=== PATIENT | male | born 1950 | race Caucasian/White ===

== ENCOUNTER 2018-07-29 22:12 | Inpatient (IN) ==
[2018-07-29 22:57] LABS: BASO# 0.02 X1000 (0.0-0.2); BASO% 0.2 % (0.0-0.8); EOS# 0.06 X1000 (0.0-0.7); EOS% 0.7 % (0.0-10.0); HEMATOCRIT 49.3 % (42.0-52.0); HEMOGLOBIN 17.2 g/dL (14.0-18.0); LYMPH# 2.21 X1000 (1.2-3.4); LYMPH% 25.6 % (20.5-51.1); MCH 31.6 PG (27-31); MCHC 34.9 g/dL (33-37); MCV 90.5 FL (81-99); MONO# 1.23 X1000 (0.11-0.59); MONO% 14.3 % (1.7-9.3); MPV 10.9 FL (7.4-10.4); NEUT# 5.11 X1000 (1.4-6.5); NEUT% 59.2 % (42.2-75.2); PLT 271 X1000 (130-400); RBC 5.45 XMIL (4.7-6.1); RDW 13.2 % (11.5-14.5); WBC 8.63 X1000 (4.8-10.8)
[2018-07-29] MEDS ORDERED: NS 1,000 ML IV ONE (22:57)
[2018-07-29] MEDS ORDERED: ZOFRAN IV ONE (22:57)
[2018-07-29] MEDS ORDERED: MORPHINE IV ONE (22:57)
[2018-07-29 23:17] LABS: AGAP 13; ALB/GLOB RATIO 1.3; ALKALINE PHOSPHATASE 63 U/L (32-122); BUN 26 mg/dL (8-22); CALCIUM 9.5 mg/dL (8.8-10.2); CHLORIDE 99 mmol/L (98-107); COSMO 280; ESTIMATED GFR > 60; GLUCOSE 162 mg/dL (70-104); GOT 18 U/L (10-34); GPT 19 U/L (10-44); LIPASE 132 U/L (13-60); POTASSIUM 3.5 mmol/L (3.5-5.1); SODIUM 136 mmol/L (136-145); TCO2 24 mmol/L (25-35); TOTAL BILIRUBIN 1.67 mg/dL (0.20-1.00)
[2018-07-30] MEDS ORDERED: XYLOCAINE 2% JELLY UROJECT TOP ONE (00:39)
--- NOTE | 2018-07-30 01:38 | PROVIDER DOCUMENTATION ---
This chart was entered by Monroe Hunter Scribe, acting as scribe for Siomara Campbell MD. HPI-Abdominal Pain/GI Problem - General Chief Complaint: Abdominal Pain Stated Complaint: STOMACH PAIN Time Seen by Provider: 07/29/18 22:54 Source: patient - History of Present Illness-ABD Nature of Presenting Problems: Pt is a 67 y/o M presents to the ED with abdominal pain, distention, N/V/D for 3 days. He had no diarrhea today but a small BM but continues to have N&V. No fever, no blood in emesis or stool, has not taken anything for his symptoms. Abdominal Pain Onset Location: reports: generalized abdomen Pain Radiation: reports: no radiation Quality of Pain: reports: aching Severity in ED: reports: moderate, severe Onset/Duration: reports: 3 days ago Timing: reports: still present Activities at Onset: reports: none Exposure to sick contacts?: No Modifying Factors: improves with: nothing Associated Symptoms: reports: diarrhea, nausea, vomiting. denies: back/neck pain, constipation, diaphoresis, fever/chills, trouble walking Review of Systems - Adult - REVIEW OF SYSTEMS - ADULT Constitutional: denies: chills, fever Eyes: reports: no symptoms reported Ears, Nose, Mouth & Throat: reports: no symptoms reported Cardiovascular: reports: no symptoms reported Respiratory: denies: cough, shortness of breath Gastrointestinal: reports: abdominal pain, diarrhea, nausea, vomiting. denies: constipation Genitourinary: denies: dysuria, discharge Musculoskeletal: denies: back pain, neck pain Integumentary: reports: no symptoms reported Neurological: reports: no symptoms reported Psychiatric: reports: no symptoms reported Endocrine: reports: no symptoms reported Hematologic/Lymphatic: reports: no symptoms reported Allergic/Immunologic: reports: no symptoms reported All Other Systems: Reviewed and Negative Past History - Adult - PAST MEDICAL HISTORY-ADULT Review of Records: reports: Old Records Reviewed, Nursing Assessment Review, Medications Reviewed - SOCIAL HISTORY Smoking: non-smoker Living Situation: family Physical Exam-General - PHYSICAL EXAM-ADULT Initial Vital Signs Reviewed: Yes - CONSTITUTIONAL General Appearance: alert, no apparent distress - EYES Eyes: PERRL/EOMI, pink conjunctivae - HEAD, EARS, NOSE, MOUTH & THROAT HENMT: moist mucous membranes, normal ENT inspection, pharynx normal - NECK Neck: non-tender, full range of motion, supple, normal inspection - RESPIRATORY Respiratory: lungs clear, normal breath sounds, no pleuratic chest pain, no respiratory distress, no accessory muscle use - CARDIOVASCULAR Cardiovascular: normal peripheral pulses, regular rate, rhythm - GASTROINTESTINAL (ABDOMEN) Abdominal Exam: distended, guarding, rigid, tenderness (diffuse moderate) - MUSCULOSKELETAL Back Exam: normal inspection, no CVA tenderness, no vertebral tenderness Extremity: normal range of motion, non-tender, normal inspection - SKIN Integumentary: normal turgor, warm/dry, jaundice (slight) - NEUROLOGIC Neurologic: grossly normal, no motor/sensory deficits - PSYCHIATRIC Psych/Mental Status: normal mood/affect, normal thought content, normal thought process, oriented x 3 Progress - PLAN OF CARE/RESULTS Progress/Plan/Lab Results: Vital Signs - 8 hr 07/29/18 22:27 Temperature 97.5 F L Pulse Rate 81 Respiratory Rate 18 Blood Pressure 124/89 O2 Sat by Pulse Oximetry 96 Orders Category Date Time Status CBC WITH ELECTRONIC DIFF [HEME] Stat Lab 07/29/18 22:40 Results COMPREHENSIVE METABOLIC PANEL [CHEM] Stat Lab 07/29/18 22:40 Received LIPASE [CHEM] Stat Lab 07/29/18 22:40 Received TROPONIN T Stat Lab 07/29/18 22:40 Received UA Reflex [URINALYSIS W/POSS RFLX CULT] [URINALYSIS] Lab 07/29/18 22:40 Ordered Stat EKG [EKG] Stat Ther 07/29/18 22:27 Ordered abdominal pain with distention nausea and vomiting will further evaluate for causes including but not limited to gastroenteritis, colitis, diverticulitis, u ti, pyelo, obstruction Result Diagrams: 07/29/18 22:40 07/29/18 22:40 - REASSESSMENT Reassessment #1 Status: improving (feeling better, symptoms likely due to SBO. NG placed and will admit. Discussed case wtih Dr. Nicholas, hospitalist who will see and admit pt.) - EKG 1 Time of EKG reading by physician:: 22:55 EKG Read and Signed by:: Siomara Campbell EKG Interpretation (*Must complete 3 of following elements*): Abnormal Rate: 77 Rhythm: NSR Comments: Borderline ECG - CT/MRI 1 CT Study: Abdomen Impression: Abnormal (1. muliple fluid filled loops of dialeted small bowel measuring up to 4.3cm. No focal transition point identifed. The descending colon and distal transverse colon decompressed. A componet of obstruction present. Mild sigmoid colon diverticulitis 3. 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), See EMR Report - CONSULTS/PCP/HOSPITALIST Notification #1 *Consult/PCP/Hospitalist*: Dr Ayala- General surgery Time Discussed: 00:34 Reason/Comments: reivew of HPI Consult Disposition: No: other (will follow) #2 Consult: Hospitalist- Dr Nicholas Time Discussed: 01:11 Reason/Comments: ADMISSION Consult Disposition: Admit (accepts) Departure - Departure Date of Disposition Decision: 07/30/18 Time of Disposition Decision: 01:38 DIAGNOSIS: Small bowel obstruction Disposition: ADMITTED INPATIENT 09 Certified Medical Emergency: Emergent Condition: Good Referrals and Follow-Ups: None,PCP [Primary Care Provider] - - Critical Care Note This patient required my direct & personal management of CC.: No Attestation - Physician/ MONIKA Attestation Patient care was provided by Advanced Practice Provider:: No The physician spent face to face time with patient:: Yes Advanced Practice Provider documentation review:: Supervising physician onsite and consulted in the evaluation and care of this patient. The physician did have a face to face encounter with the patient. This chart was documented by the indicated scribe, (Monroe Hunter Scribe) and accurately reflects the services I performed and decisions made by me, Siomara Campbell MD, as attested by the provider's signature.
--- NOTE | 2018-07-30 02:58 | HISTORY AND PHYSICAL ---
ADDENDUM: Mr. Chino Zimmer has a history of COPD and hypertension, and reports that over the last weekend, 5-6 fays ago he developed protracted nausea, vomiting and diarrhea. Denies any contact with anybody who is sick. He said that he had both diarrhea and vomiting no less than 10 episodes. On Friday 2 days later, he says his symptoms abated. He did not eat hardly anything during that day. On Friday he tried to have a bowl of cereal. Over the course of Friday and Friday he had no bowel movements. Then on Friday i.e. yesterday he tried to advance his diet to solids and said he got intense abdominal pain and was brought into the ER. Last bowel movement was a small 1 yesterday Friday. When he came in his labs were essentially unremarkable other than a mildly elevated BUN and mildly low potassium, which will be corrected. His CT scan showed small bowel obstruction with gastric distention. An NG tube was then placed and he was subsequently decompressed. His exam is essentially only notable for distended and tympanic abdomen with mild tenderness in the epigastrium. No peritoneal signs. Bowel sounds are significantly hypoactive. So our plan for him now will be abdominal decompression, IV fluids and electrolyte replacement, and treat symptomatically otherwise. If the patient does not improve after checking serial x-rays over the next 48 hours then Surgery will need to be invited. Alternatively the patient is slowly improving, and we are not sure if he is truly obstructed. We can elect to have a small bowel follow-through to confirm true obstruction versus ileus, which is very likely in this patient's case. cc: Megan Nicholas MD
[2018-07-30] MEDS: NS + KCL 20 MEQ 1,000 ML IV SCH ×2 (02:59→11:55)
[2018-07-30] MEDS ORDERED: ZOSYN 3.375 GM in NS 50 ML IV SCH (05:00)
[2018-07-30] MEDS ORDERED: ZOFRAN IV PRN (05:37)
[2018-07-30] MEDS ORDERED: OFIRMEV 1000 MG/ISOTONIC SOLN 1,000 MG/100 ML BOTTLE IV PRN (05:56)
[2018-07-30] MEDS: LEVAQUIN 750 MG/D5W 750 MG/150 ML IVPB IV SCH (06:16)
[2018-07-30 06:34] LABS: URINE SOURCE CLEAN CATCH
[2018-07-30 06:57] LABS: BILIRUBIN URINE NEGATIVE (NEGATIVE); BLOOD URINE NEGATIVE (NEGATIVE); COLOR YELLOW; GLUCOSE URINE NEGATIVE (NEGATIVE); KETONE URINE TRACE mg/dL (NEGATIVE); LEUKOCYTES URINE NEGATIVE (NEGATIVE); NITRITE URINE NEGATIVE (NEGATIVE); PH URINE 6.5; PROTEIN URINE 30 mg/dL (NEGATIVE); SP GRAVITY URINE > 1.050; TURBIDITY URINE CLEAR (CLEAR); UROBILINOGEN URINE NORMAL (NORMAL)
[2018-07-30 06:59] LABS: UR EPITHELIAL CELLS <10 /HPF (<10); URINE BACTERIA NEGATIVE /HPF; URINE RBC <10 /HPF (<10); URINE WBC <10 /HPF (<10)
--- NOTE | 2018-07-30 07:12 | EKG Report ---
Test Performed on : 07/29/2018 10:55:00 PM Test Reason : abdominal pain Blood Pressure : / mmHG Vent. Rate : 077 BPM Atrial Rate : 077 BPM P-R Int : 140 ms QRS Dur : 086 ms QT Int : 396 ms P-R-T Axes : 068 064 049 degrees QTc Int : 448 ms Normal sinus rhythm. Possible Left atrial enlargement Borderline ECG No previous ECGs available Unconfirmed Result
--- NOTE | 2018-07-30 07:30 | HISTORY AND PHYSICAL ---
PRIMARY CARE PHYSICIAN: The patient does not have a primary care provider. CHIEF COMPLAINT: Abdominal pain. HISTORY OF PRESENT ILLNESS: Mr. Zimmer is a pleasant 67-year-old male who states that for the last 3 years that he has had persistent abdominal pain and bloating. He states that previously he was being evaluated by Dr. Live with Gastroenterology and did have a colonoscopy performed at [facility] although the patient states that unfortunately that he did not have a pleasant experience time with Dr. Live ordered the care he received at [facility]. He states that he has not been back since that time due to his experience and has been dealing with his abdominal pain and bloating ever since. Also the patient did request that if Gastroenterology was involved that Dr. Live not be consulted for him if possible. The patient states that on Friday his abdominal pain did become much worse. He did have nausea, vomiting and diarrhea several episodes of each. He states that his did have similar symptoms as well. He thinks that she may have given the "stomach bug" to him though he states that she got better, her symptoms subsided though his symptoms have continued. He did report that he has felt better over the past day or 2. His nausea, vomiting and diarrhea had almost completely gone away. Given this he did try to eat something given that he reports that he had had not eaten anything almost for 3 days because he was feeling not well. He states that he did try to eat a half of a bowl of cereal and then did eat some roast beef and vegetables that his brought home to him. He states that right after he ate this he began to have severe abdominal pain. He reports it as like tight burning type pressure. It was so severe that he did present to the ER for further treatment and evaluation. He also did have nausea with this as well. Though he denied any hematochezia emesis or coffee- ground appearing emesis. He denied any hematochezia. He has reported some melena. He denies any jncw-zxx-uakcnet use of medications such as Pepto-Bismol. He has reported that he has had dizziness, occasional headache. He has had fever, body aches and chills. He denies any chest pain, or cough though states that he does frequently have shortness of breath. The patient reports that he has been told he has COPD though he does not take any medications for this. He has quit smoking approximately 5 years ago. The patient states his abdomen has persistently been bloated for 3 years and he thinks that this is contributing to some of his respiratory symptoms. He denies any dysuria or urinary frequency. He denies any pain, numbness, tingling or swelling in extremities. The patient did state that he does not like to go to doctors and this is why he does not have a primary care physician. Upon evaluation in the ER, the patient was noted to be in pain upon arrival. His abdomen is distended. He appears to be maybe a little dehydrated as well. Given his distended abdomen and reported symptoms, a CT abdomen and pelvis with IV contrast was performed which did show multiple fluid-filled loops of dilated small bowel measuring up to 4.3 cm. There was no focal transition point identified. The descending colon and distal transverse colon are decompressed. A component of obstruction is likely present. There was also mild sigmoid colon diverticulitis noted. Also mentioned were findings of a cardiac lipoma within the right atrium measuring 2.9 x 1.4 cm. Given these findings, the ER physician, [*]did consult Dr. Vasquez with Surgery and make him aware of the patient's CT findings. The patient will be placed for inpatient admission. REVIEW OF SYSTEMS: A 14 point review of systems was conducted with the patient. All were negative except for pertinent positives mentioned in the above HPI. PAST MEDICAL HISTORY: 1. History of COPD but the patient states that he is not taking any medications for this. 2. History of hypertension. The patient states he is not taking medications for this either. PAST SURGICAL HISTORY: 1. Umbilical hernia repair. 2. Bilateral inguinal hernia repairs. SOCIAL HISTORY: The patient is a former smoker. He quit smoking 5 years ago. The patient reports that he previously did have alcohol use as well though denies any at present. He has no known illicit drug use. 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 He is . FAMILY HISTORY: Positive for his mother having a history of diabetes. His father did pass away secondary to a MVC when he was only 5 years old. Due to this he does not know any medical history that his father may have had. ALLERGIES: Patient has reported anaphylactic allergy to penicillin. HOME MEDICATIONS: The patient denies any home medication use though he does state he takes an hwgr-xbl-lrzvlnp baby aspirin daily as well as vitamin B12. DIAGNOSTIC DATA/LABORATORY RESULTS: White blood cell count is 8630, hemoglobin 17.2, hematocrit 49.3, platelet count is 271,000. Sodium 136, potassium 3.5, chloride 99, serum bicarb 24, BUN 26, creatinine is 1. Glucose 162. Calcium 9.5, total bilirubin is 1.67, AST 18, ALT 19, alkaline phosphatase is 63. Troponin is less than 0.01. Lipase is 132. Chest x-ray: There does not appear to be any acute abnormality though we are awaiting official radiology over-read. CT of the abdomen and pelvis with IV contrast showed multiple fluid-filled loops of dilated small bowel measuring up to 4.3 cm. There is no focal transition point identified. The descending colon and distal transverse colon are decompressed. Component of obstruction is likely present. 2) Mild sigmoid colon diverticulitis. 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 PHYSICAL EXAMINATION: VITAL SIGNS: Temperature 97.5 degrees, heart rate 81, respirations 18, blood pressure 124/89, oxygen saturation is 96% room air. GENERAL: Mr. Zimmer is a very pleasant, 67-year-old, male who was resting in the ER stretcher. He is in no acute distress. He was awake, alert, and able to answer questions appropriately. HEENT: Head is atraumatic, normocephalic. Pupils are equal, round, reactive to light, were 3 mm bilaterally and brisk. Oral mucosa is slightly dry. Oropharynx is clear. NECK: Supple. Trachea midline. CARDIOVASCULAR: Patient has S1, S2 present. No murmurs, gallops, rubs appreciated with a regular rate and rhythm. PULMONARY: Patient has symmetrical chest expansion bilaterally. Lung sounds are clear to auscultation in bilateral full bravo. ABDOMEN: Soft, though is distended. The patient does have generalized tenderness noted upon palpation. Bowel sounds were present in all 4 quadrants, were hypoactive. EXTREMITIES: No cyanosis, clubbing, or edema noted. Pulse, motor, and sensory are intact in all extremities. Radial pulses and pedal pulses are 2+ bilaterally. INTEGUMENTARY: The patient's skin is pink, warm, and dry. NEUROLOGICAL: Patient is alert and oriented to person, place, time, and situation. He is able to move all extremities. There does not appear to be any focal neurological deficits noted. ASSESSMENT AND PLAN: 1. Small-bowel obstruction. For this, the patient will be placed NPO. He has already had a NG tube placed in the ER. The patient's abdomen though is still somewhat distended. He is still complaining of pain as well. We will provide p.r.n. morphine for pain as well as Zofran for nausea. We will provide IV fluid hydration. We have placed a consult with Dr. Vasquez and will await his evaluation and further recommendations for management. 2. Sigmoid colon diverticulitis. Though the patient does not have any leukocytosis, he has reported that he has had fever, body aches and chills. He did recently have a few days of nausea, vomiting and diarrhea. We have obtained blood cultures. We have also ordered some stool studies as well. We will place him with antibiotic coverage of Levaquin and Flagyl given that he does have a penicillin allergy. We will continue to follow. 3. Cardiac lipoma. On the patient's CT it was noted that he had a cardiac lipoma within the right atrium measuring 2.9 x 1.4 cm. Previously the patient did have a myocardial perfusion scan as well as an echocardiogram performed in September 2015 and there is no mention of any lipoma being present. For further evaluation, we will obtain a echocardiogram. We await those results and continue to follow. I would like to note that the patient does state that he has frequent shortness of breath. 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 He does have a history of COPD for which he is not taking any medications for. This could be related to that though the patient also has had persistent abdominal pain and distention for 3 years. This could be contributing to that as well though given the results of his echocardiogram as well as some of his symptoms do not improve with improvement of his abdominal distention, he may need further evaluation with chest CT and/or even possible MRI depending on echocardiogram results. 4. History of COPD. We have placed p.r.n. orders for DuoNeb treatments. 5. History of hypertension though the patient does not take any home medications for this. At this time the patient's blood pressure is within normal limits. Last reading was 124/89. We will continue to follow and implemented antihypertensive as necessary. 6. Deep vein thrombosis prophylaxis. We provided with SCDs. We will hold any anticoagulants until he is evaluated by Surgery. 7. Prophylaxis is being provided with Protonix 40 mg intravenous every 24 hours. The patient has been placed on the surgical floor with telemetry. He will have vital signs every 8 hours. We will do strict intake and output. We will repeat a CBC and BMP and magnesium in the morning. We are awaiting results of a urinalysis as well as the stool studies. Further orders and recommendations pending hospital course, diagnostic studies, and physician evaluation. Dictated by BEATRIZ Perez for Megan Nicholas MD cc: Megan Nicholas MD
--- NOTE | 2018-07-30 07:33 | Diag Imaging Result Doc PS360 ---
EXAM: CHEST-1 VIEW 07/30/2018 HISTORY: ng placement TECHNIQUE: AP portable at 0137 for NG tube placement COMMENT: The NG tube tip is in the stomach. IMPRESSION: NG tube in the stomach. Electronically signed by Eduard العلي 07/30/2018 7:31 AM
--- NOTE | 2018-07-30 07:42 | Diag Imaging Result Doc PS360 ---
EXAM: CT ABD/PELVIS W/IV CONT ONLY INDICATION: colitis TECHNIQUE: This exam was performed using automated exposure control, adjustment of mA or kV according to patient size, and/or use of iterative reconstruction technique. COMPARISON: None. FINDINGS: A 2.9 cm right atrial lipoma is noted incidentally. There is a small fat-containing Bochdalek hernia at the right lung base. The liver, gallbladder, spleen, pancreas, and adrenal glands are unremarkable. There are several small simple appearing cysts involving both kidneys. The kidneys are unremarkable, otherwise. The urinary bladder is unremarkable. The prostate is somewhat enlarged and there are bulky prostatic calcifications. There are multiple distended loops of bowel containing air-fluid levels consistent with bowel obstruction. There is a smooth transition point at the distal ileum that is seen after just to the left of midline on image 93 of series 3. There are several sigmoid colonic diverticula and there is mild focal inflammation emanating from one of the diverticula at the mid sigmoid colon that can be seen on image 116 of series 3 indicative of mild diverticulitis. The remainder of the GI tract is essentially unremarkable. There is multilevel lumbar spondylosis. There are degenerative changes at the hips. IMPRESSION: 1.Distended loops of small bowel indicating obstruction with a smooth transition point at the ileum. 2.Mild sigmoid colonic diverticulitis. 3.Other incidental/nonacute findings detailed above. Electronically signed by Juan Torres 07/30/2018 7:40 AM
[2018-07-30 07:48] LABS: BASO# 0.03 X1000 (0.0-0.2); BASO% 0.4 % (0.0-0.8); EOS# 0.09 X1000 (0.0-0.7); EOS% 1.2 % (0.0-10.0); HEMATOCRIT 45.7 % (42.0-52.0); HEMOGLOBIN 15.5 g/dL (14.0-18.0); IMM GRAN# 0.06 X1000 (0.0-0.04); IMM GRAN% 0.8 % (0.0-0.5); LYMPH# 1.99 X1000 (1.2-3.4); LYMPH% 25.9 % (20.5-51.1); MCH 30.9 PG (27-31); MCHC 33.9 g/dL (33-37); MONO# 1.28 X1000 (0.11-0.59); MONO% 16.7 % (1.7-9.3); MPV 10.8 FL (7.4-10.4); NEUT# 4.23 X1000 (1.4-6.5); PLT 226 X1000 (130-400); RBC 5.02 XMIL (4.7-6.1); RDW 13.1 % (11.5-14.5); WBC 7.68 X1000 (4.8-10.8)
[2018-07-30 08:08] LABS: AGAP 13; BUN 22 mg/dL (8-22); CALCIUM 9.1 mg/dL (8.8-10.2); CHLORIDE 101 mmol/L (98-107); COSMO 281; CREATININE 0.7 mg/dL (0.7-1.2); ESTIMATED GFR > 60; GLUCOSE 126 mg/dL (70-104); POTASSIUM 3.5 mmol/L (3.5-5.1); SODIUM 138 mmol/L (136-145); TCO2 24 mmol/L (25-35)
[2018-07-30] MEDS: MORPHINE IV PRN ×3 (08:14→23:19)
[2018-07-30] MEDS: PROTONIX IV SCH (08:34)
[2018-07-30] MEDS: SODIUM CHLORIDE 0.9% INJ SCH (08:34)
[2018-07-30] MEDS: FLAGYL 500 MG/NS 500 MG/100 ML IVPB IV SCH ×3 (08:34→23:20)
--- NOTE | 2018-07-30 09:30 | GENERAL SURGERY CONSULTATION ---
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 He dates his symptoms back to when he has last colonoscopy about 3 to 4 years ago. This was done at [facility] by Dr. Live and he is not aware of any findings related to the colonoscopy. Recently, however, he developed what he considers is a stomach bad that he got from his knows. It was manifested by nausea. Vomiting and diarrhea. This improved by Friday. He tried the some serial and got severe severely sick again with distention and vomiting. He has tried ejsf-eek-tkrcuva medications unsuccessfully. He has a past history of COPD but does not take any medications for it. He has some mild hypertension as well. MEDICATIONS: He takes no scheduled medications. ALLERGIES: He has an allergy to penicillin. PAST SURGICAL HISTORY: Includes an umbilical hernia repair and bilateral inguinal hernia repairs, apparently by Dr. Jean. SOCIAL HISTORY: He no longer smokes, he is a former. Denies illicit drug use and denies alcohol use as well. FAMILY HISTORY: Pertinent for diabetes. REVIEW OF SYSTEMS: Pertinent for some mild shortness of breath with his COPD. Otherwise, every other sub system is negative. PHYSICAL EXAMINATION: Vital Signs: He is afebrile. Heart rate 81, blood pressure 104/89. Neck: There is no cervical adenopathy. Lungs: Bilateral breath sounds. Heart: Regular rate and rhythm. Abdomen: Distended and tympanitic. No exquisite tenderness is present. No inguinal hernia palpated. Extremities: Pedal pulses are present. No peripheral edema. Neurologic: He is awake and alert. LABORATORY DATA AND DIAGNOSTIC LABS: White count 7700, hemoglobin 15, hematocrit 45. BUN 22, creatinine 0.7. His CT scan suggests dilated small bowel with a smooth transition of the ilium. He also has some mild inflammation around his sigmoid colon consistent with acute diverticulitis. PLAN: I agree with NG suction. I agree with antibiotic therapy for diverticulitis. We will get serial abdominal exams, repeat his flat and upright in the in the morning. He may benefit from a Gastrografin upper GI with small-bowel follow-through to help determine if, in fact, this is a small bowel obstruction or not. He may come to operation. Thanks for the opportunity to see him. Pedro#: [id number] cc: Hima Gutierrez MD
--- NOTE | 2018-07-30 16:23 | PROGRESS NOTE ---
DATE: 07/30/2018 Patient with nausea, but no further vomiting. Nasogastric tube in place to suction. Still with some abdominal discomfort and distention, but not really in pain currently. Continuing symptomatic conservative measures with fluids and bowel rest. Surgery consulted. Further recommendations pending. No other acute events.
--- NOTE | 2018-07-31 00:10 | ECHO REPORT ---
ORDER DATE: 07/30/2018 SUMMARY: 1. Technically difficult study due to limited acoustic window quality. 2. Aortic valve without evidence of structural abnormality and opens adequately on 2-dimensional images. Peak gradient across the valve is approximately 10 mmHg. Mitral and tricuspid valves are without evidence of structural abnormality, while pulmonic valve is not well demonstrated. There is trace tricuspid regurgitation. The aortic root is mildly enlarged. 3. Normal left ventricle dimensions suggested. Estimated left ventricular ejection fraction appears to be at least 65%. No obvious regional wall motion abnormalities evident. Doppler suggests grade 1 left ventricular diastolic dysfunction. Left atrium appears borderline enlarged on 2-dimensional images. Right atrium and right ventricle are grossly normal in size with grossly preserved right ventricular systolic function. 4. No pericardial effusion. 5. Appearance of inferior vena cava suggests normal central venous pressure. CONCLUSIONS: 1. Technically difficult study. 2. Mild enlargement of aortic root. 3. Estimated left ejection fraction at least 65% without obvious wall motion abnormality. 4. Grade 1 left ventricular diastolic dysfunction suggested. 5. Mild left atrial enlargement suggested. cc: Chino Olguin MD
[2018-07-31] MEDS: MORPHINE IV PRN ×4 (04:57→22:36)
[2018-07-31] MEDS: LEVAQUIN 750 MG/D5W 750 MG/150 ML IVPB IV SCH (04:58)
[2018-07-31] MEDS: PROTONIX IV SCH ×2 (04:58→05:40)
[2018-07-31 07:08] LABS: BASO# 0.03 X1000 (0.0-0.2); BASO% 0.4 % (0.0-0.8); EOS# 0.16 X1000 (0.0-0.7); EOS% 2.1 % (0.0-10.0); HEMATOCRIT 42.3 % (42.0-52.0); HEMOGLOBIN 13.9 g/dL (14.0-18.0); LYMPH# 1.77 X1000 (1.2-3.4); LYMPH% 22.7 % (20.5-51.1); MCH 31.1 PG (27-31); MCHC 32.9 g/dL (33-37); MCV 94.6 FL (81-99); MONO# 1.03 X1000 (0.11-0.59); MONO% 13.2 % (1.7-9.3); MPV 10.3 FL (7.4-10.4); NEUT% 61.6 % (42.2-75.2); PLT 199 X1000 (130-400); RBC 4.47 XMIL (4.7-6.1); WBC 7.79 X1000 (4.8-10.8)
[2018-07-31] MEDS: FLAGYL 500 MG/NS 500 MG/100 ML IVPB IV SCH ×2 (08:52→17:19)
[2018-07-31] MEDS: DUONEB (A & A) INH PRN ×2 (09:01→16:04)
--- NOTE | 2018-07-31 11:26 | Diag Imaging Result Doc PS360 ---
EXAM: FLAT/UPRIGHT ABD/1 VIEW CHEST INDICATION: sbo TECHNIQUE: 4 views COMPARISON: 07/30/2018 FINDINGS: There are multiple gas-distended loops of small bowel consistent with small bowel obstruction. It appears somewhat worse than the previous study. There is no evidence of large volume free abdominal gas. The NG tube is in stable position. There is minimal subsegmental atelectasis at the mid lung zones bilaterally. The lungs are grossly clear, otherwise. There is no discrete pleural fluid collection or pneumothorax. The cardiomediastinal silhouette and central vasculature are grossly unremarkable. IMPRESSION: Slight worsening of gaseous distention of small bowel. Electronically signed by Juan Torres 07/31/2018 11:24 AM
--- NOTE | 2018-07-31 12:06 | GENERAL SURGERY PROGRESS NOTE ---
DATE: 07/31/2018 Mr. Zimmer says he feels better, he has passed a little bit of flatus. His x-ray does show some air in the colon but more dilated loops of small-bowel. His laboratory data looks okay. The plan will be a Gastrografin small-bowel follow-through in the morning to see how long it takes to reach the colon. He may come to exploratory laparotomy. cc: Hima Gutierrez MD
--- NOTE | 2018-07-31 17:18 | PROGRESS NOTE ---
DATE: 07/31/2018 INTERVAL HISTORY: The patient had some mild nausea, but this is somewhat improved. No further vomiting. Abdominal distention and discomfort also somewhat improved. No new complaints. No other acute events overnight. REVIEW OF SYSTEMS: A 12-point review of systems negative except as per interval history. LABORATORIES: WBC 7.7, hemoglobin 13.9, hematocrit 42.3, platelets 199,000. IMAGING STUDIES: Abdominal x-ray, slight worsening of gaseous distention of small bowel. VITAL SIGNS: Temperature maximum 98.4 degrees, pulse 73, respirations 20, blood pressure 160/118, and O2 saturation 95% on room air. PHYSICAL EXAMINATION: General: No acute distress. Vital Signs: As above. HEENT and Neck: Normocephalic, atraumatic. Moist mucous membranes. No cervical adenopathy. Cardiovascular: Regular rate and rhythm. No murmurs, rubs, or gallops. Pulmonary: Clear to auscultation bilaterally. No wheezing, rales, or rhonchi noted. Abdomen: Slightly distended, but less than previous. Nontender. Bowel sounds significantly decreased but are present. Extremities: Peripheral pulses intact. No clubbing, cyanosis, or edema. Neurologic: Cranial nerves grossly intact. No focal deficits identified. Psychiatric: Normal mood and affect. Awake, alert, oriented x3. Skin: No new rashes or lesions identified. ASSESSMENT AND PLAN: 1. Small bowel obstruction. The patient remains on bowel rest with nasogastric tube to suction. Clinically appears slightly improved, although x-ray looks slightly worse. Continue supportive care with nausea medication as needed and intravenous fluids. Surgery following. May do barium study tomorrow for further evaluation. 2. Possible sigmoid colon diverticulitis. There were reported fevers at home, although none noted here. No leukocytosis, but CT suggestive of sigmoid colon diverticulitis. The patient is on Levaquin and Flagyl. We will continue those for now and monitor. 3. Chronic obstructive pulmonary disease. No sign of exacerbation at this time. Continue breathing treatments as needed. 4. Hypertension. Frequent mild to moderate elevations, but okay for now. If these persist, then we will likely start him on low-dose Norvasc in the near future. 5. Deep vein thrombosis prophylaxis with sequential compression devices.
[2018-08-01] MEDS: FLAGYL 500 MG/NS 500 MG/100 ML IVPB IV SCH ×5 (00:39→22:35)
[2018-08-01] MEDS: MORPHINE IV PRN ×5 (03:02→22:33)
[2018-08-01] MEDS: SODIUM CHLORIDE 0.9% INJ SCH (05:59)
[2018-08-01] MEDS: LEVAQUIN 750 MG/D5W 750 MG/150 ML IVPB IV SCH (05:59)
[2018-08-01] MEDS: PROTONIX IV SCH (05:59)
[2018-08-01 07:16] LABS: BASO# 0.02 X1000 (0.0-0.2); BASO% 0.2 % (0.0-0.8); EOS# 0.24 X1000 (0.0-0.7); EOS% 2.6 % (0.0-10.0); HEMATOCRIT 42.6 % (42.0-52.0); HEMOGLOBIN 14.4 g/dL (14.0-18.0); LYMPH# 2.05 X1000 (1.2-3.4); LYMPH% 22.1 % (20.5-51.1); MCH 31.4 PG (27-31); MCHC 33.8 g/dL (33-37); MONO# 0.95 X1000 (0.11-0.59); MONO% 10.2 % (1.7-9.3); MPV 10.5 FL (7.4-10.4); NEUT# 6.03 X1000 (1.4-6.5); NEUT% 64.9 % (42.2-75.2); PLT 220 X1000 (130-400); RBC 4.58 XMIL (4.7-6.1); RDW 12.8 % (11.5-14.5); WBC 9.29 X1000 (4.8-10.8)
--- NOTE | 2018-08-01 14:24 | Diag Imaging Result Doc PS360 ---
EXAM: SMALL BOWEL SERIES ONLY 08/01/2018 HISTORY: sbo TECHNIQUE: Small bowel series, water-soluble, 11 images, 40 seconds fluoroscopy time, 38 mGy. COMMENT: There is dilatation of the proximal small bowel loops on the assistant professor of psychology image with some gas present in the colon including the rectum. There is also stool in the colon. Following contrast administration the contrast advances in the small bowel to four hours and 30 minutes at which time it is seen in the ascending colon. The distal ileum is normal in caliber. There is active peristalsis demonstrated on fluoroscopy. IMPRESSION: Partial obstruction in the distal jejunum or proximal ileum. Electronically signed by Eduard العلي 08/01/2018 2:22 PM
--- NOTE | 2018-08-01 14:55 | PROGRESS NOTE ---
DATE: 08/01/2018 INTERVAL HISTORY: The patient went down for a small-bowel follow-through this morning. Results pending. Still some nausea and bloating, but still no further vomiting. No new complaints. No other acute events overnight. REVIEW OF SYSTEMS: Twelve point review of systems negative, except as per interval history. LABS: WBC 9.2, hemoglobin 14.4, hematocrit 42.6, platelets 220. VITALS: T-max 98.4 degrees, pulse 78, respirations 20, blood pressure 142/80, O2 saturation 95% on room air. PHYSICAL EXAMINATION: General: No acute distress. Vitals: As above. HEENT: Normocephalic, atraumatic. Moist mucous membranes. Neck: No cervical adenopathy. Cardiovascular: Regular rate and rhythm. No murmurs, rubs, or gallops. Pulmonary: Clear to auscultation bilaterally. No wheezing, rales, or rhonchi. Abdomen: Remains slightly distended, but seems to be improving slightly. Nontender. Bowel sounds decreased, but present. Extremities: Peripheral pulses intact. No clubbing, cyanosis, or edema. Neurologic: Cranial nerves grossly intact. No focal deficits identified. Psychiatric: Normal mood and affect. Awake, alert, oriented x3. Skin: No new rashes or lesions identified. ASSESSMENT AND PLAN: 1. Small bowel obstruction. The patient remains on bowel rest. Nasogastric tube still in place, but not currently to suction since he has just finished his small-bowel study. Continue supportive care with intravenous fluids and nausea medication. Surgery following. Will await further recommendations. 2. Possible sigmoid colon diverticulitis. Reported fevers at home, but none here. No leukocytosis, but CT suggestive of sigmoid colon diverticulitis. Patient on Levaquin and Flagyl. Will continue those and monitor. 3. Chronic obstructive pulmonary disease, stable at this time. Continue nebulizers as needed. 4. Hypertension, not on any blood pressure medications at home. Some moderate elevations, consistently moderately elevated here. We will likely start low-dose Norvasc once he is able to take oral reliably. 5. Deep vein thrombosis prophylaxis. Sequential compression devices.
--- NOTE | 2018-08-01 16:26 | GENERAL SURGERY PROGRESS NOTE ---
DATE: 08/01/2018 Mr. Zimmer has been passing some flatus with some relief. He still is distended however his Gastrografin small-bowel follow-through is progressing. It started this morning. Has not yet reached the colon but it is progressing. We will see what it shows and how long it takes to get to the colon. He is still taking morphine for pain relief. cc: Hima Gutierrez MD
[2018-08-02] MEDS: FLAGYL 500 MG/NS 500 MG/100 ML IVPB IV SCH ×3 (00:42→16:58)
[2018-08-02] MEDS: LEVAQUIN 750 MG/D5W 750 MG/150 ML IVPB IV SCH (04:44)
[2018-08-02] MEDS: PROTONIX IV SCH ×2 (04:45→05:06)
[2018-08-02] MEDS: SODIUM CHLORIDE 0.9% INJ SCH (04:45)
[2018-08-02] MEDS: MORPHINE IV PRN (04:45)
[2018-08-02 07:20] LABS: HEMOGLOBIN 14.4 g/dL (14.0-18.0); MCH 30.9 PG (27-31); MCHC 33.5 g/dL (33-37); MCV 92.3 FL (81-99); MPV 10.2 FL (7.4-10.4); RBC 4.66 XMIL (4.7-6.1); RDW 12.9 % (11.5-14.5); WBC 11.04 X1000 (4.8-10.8)
--- NOTE | 2018-08-02 07:47 | Diag Imaging Result Doc PS360 ---
EXAM: KUB ABDOMEN 08/02/2018 HISTORY: sbo TECHNIQUE: KUB COMMENT: There is an NG tube with its tip in the stomach. There are still distended small bowel loops as well as some gas in the left colon. There is some contrast present in the rectosigmoid colon and in the ascending colon. IMPRESSION: Partial small bowel obstruction. All of the contrast given yesterday is now in the colon. Electronically signed by Eduard العلي 08/02/2018 7:44 AM
[2018-08-02 07:50] LABS: AGAP 11; BUN 10 mg/dL (8-22); CALCIUM 9.1 mg/dL (8.8-10.2); CHLORIDE 98 mmol/L (98-107); COSMO 273; CREATININE 0.7 mg/dL (0.7-1.2); ESTIMATED GFR > 60; GLUCOSE 104 mg/dL (70-104); SODIUM 137 mmol/L (136-145); TCO2 28 mmol/L (25-35)
--- NOTE | 2018-08-02 09:22 | PROGRESS NOTE ---
DATE: 08/02/2018 SUBJECTIVE: The patient notes overall he is feeling a lot better. He has had several bowel movements yesterday. He denies any fevers or chills. States his abdominal distention is much improved. OBJECTIVE: He is afebrile. Vital signs are stable. Temperature 97.9 degrees, pulse 85, respiratory rate 20, BP 146/68, saturating 97% on room air. General: Patient is very pleasant to talk with. He is in no current respiratory distress. HEENT: Normocephalic. Neck: Supple. Cardiovascular: Regular rate. Chest: Clear and unlabored. Abdomen: Soft, nondistended, nontender. Positive bowel sounds. Extremities: Moves all extremities. Neurologic: No changes. ASSESSMENT: 1. Small bowel obstruction, appears to have resolved. His nasogastric tube is in place but currently clamped. We will discuss with surgery if option is to pull this. 2. Possible sigmoid colon diverticulitis. Continue Levaquin and Flagyl. 3. Chronic obstructive pulmonary disease. 4. Hypertension. PLAN: Overall, the patient is doing better. Hopefully, the tube can be removed and he can advance his diet and possibly even home soon. cc: West Kirk MD
--- NOTE | 2018-08-02 09:33 | GENERAL SURGERY PROGRESS NOTE ---
DATE: 08/02/2018 TIME: 8:30 in the morning. SUBJECTIVE: Mr. Zimmer had bowel movements last night more than once. He felt relief of pressure in his abdomen. He is obviously improved. DIAGNOSTIC STUDIES: The flat and upright of the KUB this morning showed some contrast in his ascending colon and even some in his rectum, so there was no contrast left in his small bowel. [place] [id number], hemoglobin 14.4. Chemistry is okay. PLAN: The plan will be to remove his NG tube today, but keep him n.p.o. He can have ice chips only. I will redo to his labs tomorrow and recheck his amylase. That still concerns me as to why he would have an elevated [*]lipase. We will reconsider him for repeat CAT scan tomorrow. cc: Hima Gutierrez MD
[2018-08-03] MEDS: FLAGYL 500 MG/NS 500 MG/100 ML IVPB IV SCH ×4 (00:08→23:51)
[2018-08-03] MEDS: LEVAQUIN 750 MG/D5W 750 MG/150 ML IVPB IV SCH (05:58)
[2018-08-03] MEDS: PROTONIX IV SCH (05:58)
[2018-08-03] MEDS: SODIUM CHLORIDE 0.9% INJ SCH (05:58)
[2018-08-03 06:50] LABS: BASO# 0.03 X1000 (0.0-0.2); BASO% 0.3 % (0.0-0.8); EOS# 0.26 X1000 (0.0-0.7); EOS% 2.5 % (0.0-10.0); HEMATOCRIT 48.6 % (42.0-52.0); HEMOGLOBIN 16.2 g/dL (14.0-18.0); LYMPH# 1.59 X1000 (1.2-3.4); LYMPH% 15.3 % (20.5-51.1); MCH 30.9 PG (27-31); MCHC 33.3 g/dL (33-37); MCV 92.6 FL (81-99); MONO# 0.94 X1000 (0.11-0.59); MPV 9.8 FL (7.4-10.4); NEUT% 72.9 % (42.2-75.2); PLT 281 X1000 (130-400); RBC 5.25 XMIL (4.7-6.1); RDW 12.9 % (11.5-14.5); WBC 10.42 X1000 (4.8-10.8)
[2018-08-03 07:19] LABS: AGAP 11; ALB/GLOB RATIO 1.1; ALBUMIN 3.6 g/dL (3.5-5.0); ALKALINE PHOSPHATASE 52 U/L (32-122); BUN 6 mg/dL (8-22); CHLORIDE 97 mmol/L (98-107); COSMO 272; CREATININE 0.7 mg/dL (0.7-1.2); ESTIMATED GFR > 60; GLUCOSE 114 mg/dL (70-104); GOT 59 U/L (10-34); GPT 55 U/L (10-44); LIPASE 137 U/L (13-60); POTASSIUM 3.5 mmol/L (3.5-5.1); SODIUM 137 mmol/L (136-145); TCO2 29 mmol/L (25-35); TOTAL BILIRUBIN 0.96 mg/dL (0.20-1.00); TOTAL PROTEIN 6.8 g/dL (6.3-8.3)
--- NOTE | 2018-08-03 08:37 | Diag Imaging Result Doc PS360 ---
EXAM: FLAT/UPRIGHT ABD/1 VIEW CHEST HISTORY: sbo TECHNIQUE: Flat and upright with chest, three views COMPARISON: 08/02/2018 FINDINGS: The lungs are well expanded. No cardiomegaly. No pneumonia. No free air beneath the diaphragm. There continue to be air distended loops of small bowel. A small amount of contrast is present in the descending colon and rectum. Previously this was in the proximal colon. No organomegaly. IMPRESSION: Persistent at least partial small bowel obstruction. Electronically signed by Hernan Spangler 08/03/2018 8:35 AM
[2018-08-03] MEDS ORDERED: NS 1,000 ML IV SCH (14:45)
--- NOTE | 2018-08-03 15:27 | PROGRESS NOTE ---
DATE: 08/03/2018 SUBJECTIVE: The patient reports feeling dehydrated. Reports having had 2 bowel movements. OBJECTIVE: Vital Signs: Temperature 98.7 degrees, heart rate 82, respiratory rate 20, blood pressure 148/98, O2 saturation 97% on room air. General: This is a 67-year-old male, lying in bed, in no acute distress. HEENT: Head is normocephalic, atraumatic. Neck: No JVD noted. No carotid bruits. No lymphadenopathy. No thyromegaly. Cardiovascular: S1, S2 heard. No murmurs, gallops, or rubs. Regular rate and rhythm. Respiratory: Clear bilaterally to auscultation. No work of breathing or using accessory muscles. Abdomen: Soft. A little bit distended but bowel sounds present. No organomegaly. Extremities: No clubbing, cyanosis, or edema. Peripheral pulses present in all legs. Neurological: The patient alert and oriented x3. Moves 4 extremities. LABORATORY DATA: Reviewed. X-ray from this morning showed persistent at least partial small bowel obstruction. ASSESSMENT AND PLAN: 1. Small bowel obstruction. NG tube was pulled out yesterday. Even though the results of the x- ray from this morning, the patient is having bowel movements and is not feeling sick, so this point will start a clear liquid diet and some IV fluids as well. We will continue to monitor. 2. Possible sigmoid colon diverticulitis. We will continue with Levaquin and Flagyl. The white cell count is normal. 3. Chronic obstructive pulmonary disease not in exacerbation. We will continue with breathing treatments as needed. 4. Hypertension. The patient has been started on Norvasc for this new diagnosis. 5. Deep vein thrombosis prophylaxis. Sequential compression devices . 6. Disposition: We will continue to monitor this patient closely. We will follow only from General Surgery. cc: Renny Maravilla MD
[2018-08-03] MEDS: DUONEB (A & A) INH PRN (15:53)
--- NOTE | 2018-08-03 17:00 | GENERAL SURGERY PROGRESS NOTE ---
DATE: 08/03/2028 Mr. Zimmer has done well without his NG tube. He is still passing some flatus and liquid bowel movements. He has been started on clear liquids today, and we will advance his diet if he continues to progress okay. His abdominal x-ray still shows significant amount of air and abdominal distention. His white count is down to normal again. cc: Hima Gutierrez MD
[2018-08-03] MEDS ORDERED: HALL'S COUGH LOZENGE MT PRN (21:32)
[2018-08-04] MEDS: LEVAQUIN 750 MG/D5W 750 MG/150 ML IVPB IV SCH (05:04)
[2018-08-04] MEDS: SODIUM CHLORIDE 0.9% INJ SCH (05:04)
[2018-08-04] MEDS: PROTONIX IV SCH (05:04)
[2018-08-04 07:18] LABS: BASO# 0.06 X1000 (0.0-0.2); BASO% 0.6 % (0.0-0.8); EOS# 0.27 X1000 (0.0-0.7); EOS% 2.7 % (0.0-10.0); HEMATOCRIT 43.6 % (42.0-52.0); HEMOGLOBIN 14.7 g/dL (14.0-18.0); IMM GRAN# 0.15 X1000 (0.0-0.04); IMM GRAN% 1.5 % (0.0-0.5); LYMPH# 1.86 X1000 (1.2-3.4); LYMPH% 18.6 % (20.5-51.1); MCH 31.1 PG (27-31); MCHC 33.7 g/dL (33-37); MCV 92.2 FL (81-99); MONO# 0.92 X1000 (0.11-0.59); MONO% 9.2 % (1.7-9.3); MPV 9.9 FL (7.4-10.4); NEUT# 6.74 X1000 (1.4-6.5); NEUT% 67.4 % (42.2-75.2); PLT 280 X1000 (130-400); RBC 4.73 XMIL (4.7-6.1); RDW 12.8 % (11.5-14.5)
[2018-08-04 07:33] LABS: AGAP 8; BUN 7 mg/dL (8-22); CALCIUM 8.8 mg/dL (8.8-10.2); CHLORIDE 103 mmol/L (98-107); COSMO 279; CREATININE 0.9 mg/dL (0.7-1.2); ESTIMATED GFR > 60; GLUCOSE 121 mg/dL (70-104); POTASSIUM 3.6 mmol/L (3.5-5.1); SODIUM 140 mmol/L (136-145); TCO2 29 mmol/L (25-35)
[2018-08-04] MEDS: FLAGYL 500 MG/NS 500 MG/100 ML IVPB IV SCH (08:15)
--- NOTE | 2018-08-04 13:28 | DISCHARGE SUMMARY ---
ADMISSION DATE: 07/29/2018 DISCHARGE DATE: 08/04/2018 ADMITTING DIAGNOSES: 1. Small bowel obstruction. 2. Sigmoid colon diverticulitis. 3. Cardiac lipoma. 4. History of chronic obstructive pulmonary disease. 5. Hypertension. DISCHARGE DIAGNOSES: 1. Small bowel obstruction. 2. Sigmoid colon diverticulitis. 3. Cardiac lipoma. 4. History of chronic obstructive pulmonary disease. 5. Hypertension. CONSULTATIONS: Dr. Hima Gutierrez with General Surgery. DIAGNOSTIC PROCEDURES AND FINDINGS: EKG on 07/29/2018 shows normal sinus rhythm, no acute ST or T abnormalities. Abdomen and pelvis CT on 07/29/2018 shows distended loops of small bowel indicating obstruction with smooth transition point in the ileum, mild sigmoid colon diverticulitis. Chest x-ray on 07/30/2018 shows NG tube in the stomach. Echocardiogram on 07/30/2018 shows mild enlargement of the aortic root, estimated EF of 65%, grade 1 LV diastolic dysfunction, mild left atrial enlargement. Abdomen x-ray on 07/31/2018 with slight worsening of gastric distention of the small bowel. Small bowel x-ray on 08/01/2018 shows partial obstruction in the distal jejunum or proximal ileum. Abdomen x-ray on 08/02/2018 shows partial small bowel obstruction, all of the contrast given yesterday is now in the colon. Abdomen x-ray on 08/03/2018 with persistent, at least partial, SBO. HOSPITAL COURSE: Mr. Zimmer is a 67-year-old male who came to the ER with abdominal pain over the past 3 years. He did have a colonoscopy previously with Dr. Live with Gastroenterology, but per his report, he did not have a pleasant experience and has not gone back to GI since then. He has acute worsening of abdominal pain Friday before admission. He had nausea, vomiting and diarrhea. There was possibility of infectious diarrhea, as his was sick with the same, but as her symptoms improved, his did not. He did report melena, fever, body aches and chills. In the ER, he was noted to have a small bowel obstruction on CT and possible mild sigmoid diverticulitis. There was also a question of cardiac lipoma in the right atrium. The patient was admitted, given bowel rest, had NG tube placed and placed on antibiotics for diverticulitis. Consulted Surgery who followed him on a daily basis, no surgical intervention was ever needed during his admission. With regards to his possible cardiac lipoma, we did an echocardiogram which did not reveal any evidence of abnormal structure. With IV fluids, bowel rest and antibiotics, his symptoms did improve. Surgery did pull his NG tube, and he was tolerating fluids well. Overall, everything has improved to the point where he can now be discharged home. DISCHARGE MEDICATIONS: Aspirin 81 mg daily, B12 5000 mcg micro lozenge sublingual daily, Levaquin 750 mg daily, Protonix 40 mg daily, Flagyl 500 mg p.o. t.i.d. for 7 days, and Levaquin is for 7 days. DISCHARGE LABS: WBC is 10, hemoglobin 14.7, hematocrit 43.6, platelet count 280. Sodium is 140, potassium 3.6, chloride 103, CO2 is 29, anion gap is 8, BUN is 7, creatinine 0.9, glucose 121. DISCHARGE VITALS: Blood pressure is 127/80, heart rate 83, respiratory rate 18, O2 saturation is 100% on room air, temperature is 98.2. DISCHARGE DIET: Increase diet as tolerated. Heart healthy. DISCHARGE ACTIVITY: Resume activity as tolerated. DISPOSITION AND OTHER DISCHARGE INSTRUCTIONS: The patient is discharged home to self care. He is to follow up with Dr. Gutierrez on 08/18/2018 at 10 a.m. Continue all medications as directed. Continue antibiotics to completion. He is to return to the ER or call 911 for worsening complaints or concerns. All questions answered. Discharge time is greater than 35 minutes. Dictated by BEATRIZ Fernando for Renny Maravilla MD Addendum: Patient seen and examined by myself. Agree with BEATRIZ note. It reflects my assessment and plan. Patient is being discharged in stable condition. cc: BEATRIZ Fernando MD Robert C. Walker, MD [facility]ITAL[facility]an
[2018-08-04 14:51] VITALS: BP 145/88
== END 2018-08-04 16:56 | disposition home or self-care (01) | DRG 389 ==
LOC: ED 22:12 → SUATTDRO 22:13 → 4N 07-30 06:24 → SUATTDRO 07-30 06:24
PROVIDERS: ATTEND Internal Medicine
CPT/HCPCS: 71010; 71045; 74000; 74018; 74022; 74177; 74250; 80048; 80053; 81001; 82270; 83690; 83735; 84484; 85025; 85027; 87040; 87045; 87046; 87205; 87324; 89055; 93005; 93306; 94640; 94761; 94799; 96365; 96366; 96368; 96375; 99285; A9270; C9113; J1956; J2270; J2405; J3480; J7030; Q9967; S0030; S0164